=== PATIENT | female | born 1990 | race African-American/Black ===

== ENCOUNTER 2022-05-13 12:45 | Emergency (ER) | payer OTHER ==
[2022-05-13 13:16] LABS: Bilirubin Neg (Negative); Blood, Urine 10 (Negative); Clarity Clear (Clear); Glucose, Urine (Dipstick) >=1000 mg/dL (Negative); Ketone, Urine 5 mg/dL (Negative); Leukocyte 25 (Negative); Nitrite Negative (Negative); Protein, Urine (Dipstick) Negative (Neg-Trace); Urobilinogen Normal mg/dL (Less than 2)
[2022-05-13 13:21] LABS: Pregnancy Test - Urine (BHCG) Negative (Negative); Pregu Control Background? CLEAR/WHITE (CLR/WHITE); Pregu Control Bar Appear? YES (CONTROL BAR)
[2022-05-13 13:32] LABS: #Basophils 0.1 10x3/uL (0.0-0.2); #Eosinphils 0.1 10x3/uL (0.0-0.5); #Monocytes 0.4 10x3/uL (0.0-1.1); #Neutrophils 3.5 10x3/uL (1.5-8.4); %Basophils 0.7 % (0.0-2.0); %Eosinophils 1.5 % (0.0-6.0); %Lymphocytes 40.3 % (18.0-47.0); %Monocytes 6.1 % (0.0-10.0); %Neutrophils 51.1 % (40.0-75.0); Hemoglobin 14.2 g/dL (12.0-15.5); Mean Corpuscular HGB CONC 35.1 g/dL (32.0-36.0); Mean Corpuscular Hemoglobin 28.2 pg (27.0-33.0); Mean Corpuscular Volume 80.4 fl (81.6-98.3); Mean Platelet Volume 9.5 fl (7.4-10.4); Platelet Count 373 10x3/uL (150-450); Red Blood Cell (RBC) Count 5.04 10x6/uL (3.90-5.03); White Blood Cell (WBC) Count 6.9 10x3/uL (3.5-10.5)
[2022-05-13 13:40] LABS: Bacteria/HPF Rare-Few HPF (None Seen); RBC/HPF 0-3 HPF (0-3)
[2022-05-13 13:49] LABS: ALT (SGPT) 36 U/L (8-55); AST (SGOT) 30 U/L (5-34); Albumin 4.4 g/dL (3.5-5.0); Alkaline Phosphatase 30 U/L (40-110); Anion Gap 16 mmol/L (10-20); BUN (Urea Nitrogen) 6 mg/dL (7.0-18.7); Bilirubin, Total 0.6 mg/dL (0.2-1.2); Calc. Creatinine Clearance 0 mL/min (70-130); Calcium 9.7 mg/dL (7.8-10.44); Carbon Dioxide 21 mmol/L (22-29); Chloride 100 mmol/L (98-107); Estimated GFR 114; Globulin 3.8 g/dL (2.4-3.5); Glucose 315 mg/dL (70-105); Lipase 20 U/L (8-78); Potassium 3.7 mmol/L (3.5-5.1); Protein, Total 8.2 g/dL (6.0-8.3); Sodium 133 mmol/L (136-145)
[2022-05-13] MEDS ORDERED: Milk Of Magnesia 30 ML UDCUP ONE (14:15)
[2022-05-13] MEDS ORDERED: Lidocaine Viscous Sol 2% 15 ml UD Cup ONE (14:15)
== END 2022-05-13 16:39 | disposition home or self-care (01) ==
LOC: CSHERS 12:45
DX: R10.9 Unspecified abdominal pain (principal); R10.816 Epigastric abdominal tenderness; R11.2 Nausea with vomiting, unspecified; E11.9 Type 2 diabetes mellitus without complications
CPT/HCPCS: 36415; 80053; 81003; 81015; 81025; 83690; 85025; 99283

== ENCOUNTER 2022-09-02 15:29 | Emergency (ER) | payer OTHER | END 2022-09-02 17:41 | disposition home or self-care (01) | LOC: CSHERS 15:29 | DX: J98.8 Other specified respiratory disorders (principal); E11.9 Type 2 diabetes mellitus without complications; Z20.822 Contact with and (suspected) exposure to COVID-19 | CPT/HCPCS: 87081; 87430; 87804; 99283; U0003; U0005 ==

== ENCOUNTER 2022-09-05 16:22 | Emergency (ER) | payer OTHER, SELFPAY ==
[2022-09-05] MEDS ORDERED: Acetaminophen 500 MG TAB ONE (16:54)
[2022-09-05] MEDS ORDERED: Ibuprofen 200 MG TAB ONE (16:55)
[2022-09-05 18:06] LABS: SARS-CoV-2 NAA Rapid Test Not Detected (NotDetected)
== END 2022-09-05 18:30 | disposition home or self-care (01) ==
LOC: CSHERS 16:22
DX: B34.9 Viral infection, unspecified (principal); E11.9 Type 2 diabetes mellitus without complications; Z20.822 Contact with and (suspected) exposure to COVID-19
CPT/HCPCS: 71045

== ENCOUNTER 2022-12-11 15:09 | Emergency (ER) | payer OTHER, SELFPAY ==
[2022-12-11] MEDS ORDERED: Ipratropium/Albuterol 3 ML NEB ONE (16:05)
[2022-12-11 16:28] LABS: SARS-CoV-2 NAA Rapid Test DETECTED (NotDetected)
[2022-12-11] MEDS ORDERED: Ventolin HFA Inhaler 60 PUFF INHALER ONE (17:00)
== END 2022-12-11 17:43 | disposition home or self-care (01) ==
LOC: CSHERS 15:09
DX: U07.1 COVID-19 (principal); E11.9 Type 2 diabetes mellitus without complications
CPT/HCPCS: 71045; 87081; 87430; 94760; J7620

== ENCOUNTER 2023-11-19 15:51 | Emergency (ER) | payer OTHER | END 2023-11-19 18:30 | LOC: CSHERS 15:51 | DX: Z53.21 Procedure and treatment not carried out due to patient leaving prior to being seen by health care provider (principal) ==

== ENCOUNTER 2024-11-01 08:25 | Emergency (ER) | payer OTHER | END 2024-11-01 08:47 | disposition home or self-care (01) | LOC: CSHERS 08:25 | DX: B34.9 Viral infection, unspecified (principal); I10 Essential (primary) hypertension; E11.9 Type 2 diabetes mellitus without complications | CPT/HCPCS: 87428; 99283 ==